=== PATIENT | male | born 1945 | race Caucasian/White ===

== ENCOUNTER 2019-02-13 18:34 | Emergency (ER) | payer MEDICARE, BC, SELFPAY ==
--- NOTE | 2019-02-13 18:43 | XR_ITS ---
WS: [id number] CHEST XRAY TECHNIQUE: Portable chest. CLINICAL INFORMATION: cp COMPARISON: None. FINDINGS: Heart: Normal cardiac silhouette. Lungs: Lungs are clear. No consolidation or pleural effusion. Bones: Normal visualized bony structures. XR/XR chest 1V portable [id number] IMPRESSION: Normal chest
[2019-02-13 19:03] VITALS: BP 130/82; PULSE 50; RESP 16; TEMP 36.6; O2SAT 95; BMI 24.3
[2019-02-13 19:26] LABS: Basophils % 0.4 %; Eosinophils # 0.2 10^3/uL (0.0-0.8); Eosinophils % 2.2 %; Hematocrit 45.1 % (42.0-52.0); Hemoglobin 15.3 g/dL (11.7-16.6); Lymphocytes # 1.6 10^3/uL (0.8-4.8); Lymphocytes % 22.9 %; Mean Corpuscular HGB Conc 33.9 g/dL (30.0-36.0); Mean Corpuscular Hemoglobin 29.5 pg (28.0-34.0); Mean Corpuscular Volume 86.9 fL (80-94); Monocytes # 0.5 10^3/uL (0.2-0.9); Monocytes % 6.6 %; Neutrophils # 4.8 10^3/uL (1.8-7.7); Neutrophils % 67.8 %; Nucleated Red Blood Cells % 0 %; Platelet Count 159 10^3/cmm (130-400); Red Blood Count 5.19 10^6/uL (4.1-5.3); Red Cell Distribution Width 12.4 % (12.1-15.1); White Blood Count 7.1 10^3/uL (4.0-10.0)
[2019-02-13 19:54] LABS: Alanine Aminotransferase 17 U/L (0-41); Albumin Level 4.7 g/dL (3.5-5.2); Alkaline Phosphatase 82 IU/L (40-130); Anion Gap 14.7 (5-19); Aspartate Amino Transferase 27 U/L (0-40); Blood Urea Nitrogen 17 mg/dL (8-23); Calcium 9.9 mg/Dl (8.8-10.2); Carbon Dioxide 26 mmol/L (22-29); Chloride 102 mmol/L (98-107); Globulin 3.1 g/dL (1.3-4.6); Glucose 98 mg/dL (74-106); Potassium 4.7 mmol/L (3.5-5.1); Sodium 138 mmol/L (136-145); Total Bilirubin 0.4 mg/dL (0.15-1.2); Total Protein 7.8 g/dL (6.6-8.7)
[2019-02-13 19:55] LABS: Troponin(5th) Baseline 8 ng/mL (0-15)
--- NOTE | 2019-02-13 20:43 | ECG_ITS ---
Measurements Intervals [place] Rate: 50 P: 74 RI: 151 QRS: 67 QRSD: 98 T: 69 QT: 434 QTc: 399 SINUS BRADYCARDIA No previous ECG available for comparison Electronically Signed On 02-14-2019 14:43:11 [employer] by Sorin Cardenas M.D. [id number]
--- NOTE | 2019-02-13 22:54 | ED_ITS ---
Entered by Clare Nicole, acting as scribe for Cruz Frederick MD Feb 13, 2019 18:34 HPI - Chest Pain General: Chief Complaint: Chest Pain Stated Complaint: CP Time Seen by Provider: 02/13/19 22:53 Source: patient and EMS Mode of arrival: EMS Limitations: no limitations History of Present Illness: HPI narrative: 73 y/o male presents to the ED with complaint of chest pain. Pt states he was seen at [facility] ER on February 05, 2019. There were no acute findings and he was advised to follow up with his regular doctor. His pain tends to occur at rest. He has been on protonix for about a week. He has a known hiatal hernia, at this time. MD complaint: chest pain and other (epigastric) Onset (ago): hour(s) Timing of current episode: episodic Prior episodes: Yes Onset: during rest Pain location: epigastric Severity: mild Associated symptoms: Deny dyspnea, fever(s), nausea or vomiting Review of Systems Const: Denies: fever or chills Eyes: Denies: change in vision ENMT: Denies: throat pain or mouth pain Card: Reports: chest pain Resp: Denies: shortness of breath GI: Denies: nausea, vomiting or diarrhea Musc: Denies: back pain or joint pain Skin/Breast: Denies: rash Neuro: Denies: headache or behavioral changes Psych: Denies: depression Endo: Denies: excessive urination Yang/Lymph: Denies: easy bruising All/Imm: Denies: hives PFSH ED PFSH: Statuses (acute, chronic, etc) shown below reflect problem list status as previously entered and may not be historically accurate Social History Smoking and tobacco status: never smoked Physical Exam Const: COMMON NORMALS: no apparent distress, oriented x3 and healthy appearing HENMT: COMMON NORMALS: normocephalic and external nose normal HEAD & SCALP: normocephalic NOSE: external nose normal Eye: COMMON NORMALS: PERRL PUPIL: Yes PERRL Neck/C-Spine: COMMON NORMALS: full ROM and no lymphadenopathy Chest: COMMONS NORMALS: inspection of chest normal Resp: COMMON NORMALS: normal respiratory effort, no use of accessory muscles and clear to auscultation bilaterally AUSCULTATION: clear to auscultation bilaterally Cardio: COMMON NORMALS: regular rate and regular rhythm RATE: regular rate RHYTHM: regular rhythm GI: COMMON NORMALS: normal to inspection, nondistended, normoactive bowel sounds, soft to palpation, non-tender and no masses PALPATION: Yes soft Back/Pelvis: THORACIC SPINE/UPPER BACK: Yes normal to inspection Extremity: COMMON NORMALS: normal to inspection, full ROM and normal capillary refill Neuro: COMMON NORMALS: oriented x3 Psych: COMMON NORMALS: mental status grossly normal and cooperative Skin: COMMON NORMALS: no rashes or lesions noted GENERAL SKIN EXAM: no rashes or lesions noted Course Vital Signs: Vital signs: Vital Signs Temperature 98.4 F 02/13/19 23:18 Pulse Rate 51 L 02/13/19 23:18 Respiratory Rate 16 02/13/19 23:18 Blood Pressure 138/83 02/13/19 23:18 Pulse Oximetry 97 02/13/19 23:18 MDM - Chest Pain MDM Narrative: Medical decision making narrative: Patient presents with a syncopal episode likely from dehydration. Patient is well-appearing here. I offered him admission but he states he feels improved and would like to go home. Patient head CT is normal. He is stable for discharge and return if worsening. Lab Data: Labs: Lab Results 02/13/19 02/13/19 02/13/19 Range/Units 19:15 19:15 19:15 WBC 7.1 (4.0-10.0) 10^3/ uL RBC 5.19 (4.1-5.3) 10^6/u L Hgb 15.3 (11.7-16.6) g/dL Hct 45.1 (42.0-52.0) % MCV 86.9 (80-94) fL MCH 29.5 (28.0-34.0) pg MCHC 33.9 (30.0-36.0) g/dL RDW 12.4 (12.1-15.1) % Plt Count 159 (130-400) 10^3/c mm MPV 11.0 H (7.4-10.4) fL Neut % (Auto) 67.8 % Lymph % (Auto) 22.9 % [place] % (Auto) 6.6 % Eos % (Auto) 2.2 % Baso % (Auto) 0.4 % Neut # (Auto) 4.8 (1.8-7.7) 10^3/u L Lymph # (Auto) 1.6 (0.8-4.8) 10^3/u L [place] # (Auto) 0.5 (0.2-0.9) 10^3/u L Eos # (Auto) 0.2 (0.0-0.8) 10^3/u L Baso # (Auto) 0.0 (0.0-0.1) 10^3/u L Nucleated RBC % (a uto) 0 % Nucleated RBCs # 0.0 /100WBC Sodium 138 (136-145) mmol/L Potassium 4.7 (3.5-5.1) mmol/L Chloride 102 (98-107) mmol/L Carbon Dioxide 26 (22-29) mmol/L Anion Gap 14.7 (5-19) BUN 17 (8-23) mg/dL Creatinine 1.1 (0.7-1.2) mg/dL Glucose 98 (74-106) mg/dL Calcium 9.9 (8.8-10.2) mg/Dl Total Bilirubin 0.4 (0.15-1.2) mg/dL AST 27 (0-40) U/L ALT 17 (0-41) U/L Alkaline Phosphata se 82 (40-130) IU/L Troponin T Baselin e 8 (0-15) ng/mL Troponin T 120 Min [place] (0-15) ng/mL Delta Troponin T (0-10) ABS# Total Protein 7.8 (6.6-8.7) g/dL Albumin 4.7 (3.5-5.2) g/dL Globulin 3.1 (1.3-4.6) g/dL 02/13/19 Range/Units 21:12 WBC (4.0-10.0) 10^3/ uL RBC (4.1-5.3) 10^6/u L Hgb (11.7-16.6) g/dL Hct (42.0-52.0) % MCV (80-94) fL MCH (28.0-34.0) pg MCHC (30.0-36.0) g/dL RDW (12.1-15.1) % Plt Count (130-400) 10^3/c mm MPV (7.4-10.4) fL Neut % (Auto) % Lymph % (Auto) % [place] % (Auto) % Eos % (Auto) % Baso % (Auto) % Neut # (Auto) (1.8-7.7) 10^3/u L Lymph # (Auto) (0.8-4.8) 10^3/u L [place] # (Auto) (0.2-0.9) 10^3/u L Eos # (Auto) (0.0-0.8) 10^3/u L Baso # (Auto) (0.0-0.1) 10^3/u L Nucleated RBC % (a uto) % Nucleated RBCs # /100WBC Sodium (136-145) mmol/L Potassium (3.5-5.1) mmol/L Chloride (98-107) mmol/L Carbon Dioxide (22-29) mmol/L Anion Gap (5-19) BUN (8-23) mg/dL Creatinine (0.7-1.2) mg/dL Glucose (74-106) mg/dL Calcium (8.8-10.2) mg/Dl Total Bilirubin (0.15-1.2) mg/dL AST (0-40) U/L ALT (0-41) U/L Alkaline Phosphata se (40-130) IU/L Troponin T Baselin e (0-15) ng/mL Troponin T 120 [address] [place] 8.90 (0-15) ng/mL Delta Troponin T 0.90 (0-10) ABS# Total Protein (6.6-8.7) g/dL Albumin (3.5-5.2) g/dL Globulin (1.3-4.6) g/dL Imaging Data^: CXR: Attestation: I personally reviewed and interpreted this imaging study as follows: My impression: nad CT Head: Radiologist's impression: nad EKG Data^: EKG 1: Attestation: I personally reviewed and interpreted this EKG as follows: EKG interpretation date: 02/13/19 EKG interpretation time: 18:44 Interpretation: sinus jared hr [address] or t wave abnormalities qrs 97 qtc 411 Discharge Plan Discharge Patient Disposition: Home, Self-Care Clinical Impression: Chest pain Qualifiers: Chest pain type: unspecified Qualified Code(s): R07.9 - Chest pain, unspecified Condition: Stable Discharge Orders: Discharge Order (Routine); Ordered 02/13/19 Ordered By: Cruz Frederick Referrals: Sorin Cardenas MD [Physician] - 4-7 days Discharge Diet: Advance as tolerated Discharge Activity: Resume usual activity Patient Instructions: Chest Pain (ED) Discharge Date/Time: 02/13/19 23:18 Coding Level of Care Code ED Public Administration Teacher for Chg Fwd Exam Problem Focused The documentation recorded by the Corey pedersen Ashley, accurately reflects the service I personally performed and the decisions made by Otoniel garcia Korby, MD Feb 13, 2019 18:34
[2019-02-13 23:18] VITALS: BP 138/83; PULSE 51; RESP 16; TEMP 36.9; O2SAT 97
--- NOTE | 2019-02-14 10:07 | DCPLANNER ---
technical manager chemical plant had message to schedule a follow up appointment for patient with [facility]. technical manager chemical plant called [facility], spoke with Abby, a follow up appointment was scheduled for Sunday, March 24, 2019 at 1:[address] Cardenas. Clinic will call patient with appointment information.
--- NOTE | 2019-04-08 14:29 | DCPLANNER ---
Patient did attend the appointment scheduled for 03.24.19 with [facility].
== END 2019-02-13 23:18 | disposition home or self-care (01) ==
PROVIDERS: Emergency Provider Emergency Medicine
DX: R07.9 Chest pain, unspecified (principal)
CPT/HCPCS: 36415; 71045; 80053; 84484; 85025; 93005; 99281

== ENCOUNTER 2019-04-22 06:33 | Outpatient (CLI) | payer MEDICARE, BC, SELFPAY ==
--- NOTE | 2019-04-22 07:16 | ECG_ITS ---
NAME OF STUDY: EXERCISE SESTAMIBI STRESS TEST INDICATION: Chest Pain, EXERCISE TREADMILL STRESS ORDERING PHYSICIAN: Theresa CLINICAL INFORMATION: Chest pain INTERPRETATION: 1. The patient exercised for 4 minutes and 16 seconds on a Eladio protocol. He reached a maximum heart rate of 141 beats per minute, which is 95 % of his maximum predicted heart rate. The test was stopped due to fatigue. 2. The baseline electrocardiogram reveals sinus rhythm with significant baseline artifact making interpretation of the EKG nearly impossible. 3. With exercise, there were no obvious ST segment changes to suggest ischemia. There was such baseline artifact the treadmill portion is nondiagnostic. 4. The resting blood pressure was 145/90. The maximum blood pressure was 213/69. 5. At maximum exercise, the patient achieved 7 METs with a rate pressure product of 273. 6. The patient experienced no chest pain during the examination. Occasional uniform PVCs developed during exercise CONCLUSION: 1. Probably normal exercise treadmill test. 2. Below average exercise capacity for age. 3. Hypertensive blood pressure response to exercise. 4. Nuclear imaging to follow Electronically Signed On 04-22-2019 10:40:47 CDT by Sorin Cardenas M.D. [id number]
--- NOTE | 2019-04-22 07:16 | NMCV_ITS ---
NM kaiden perf SPECT r/s* [id number] Maciel Wilson Age: 74 Gender: M : 1945 Exam Date: 04/22/2019 08:22 Ordering Phys: Sorin Cardenas MD ([email or web address]) Technologist: HOSEA Rosario Exam Location: [facility] Indications: Chest pain STRESS TEST Please see separate stress test report in [facility] for full findings IMAGE PROTOCOL Rest/Stress 1 Exercise Day Radiopharmaceutical Dose (mCi) Administration Site Administered by Rest: Tc-99m 10.7 IV HOSEA Rosario Sestamibi Stress:Tc-99m 32.6 IV HOSEA Rosario Sestamibi Rest: 22-Apr-2019 60 Discovery 630 Stress: 22-Apr-2019 15 Discovery 630 Radiopharmaceutical was injected at 86% maximum heart rate. Images obtained in supine and prone position. SPECT RESULTS Technical Quality: Good Raw Data Analysis: Normal Image Corrections: No attenuation or motion correction applied Summed Stress Score: 3 Summed Rest Score: 0 Summed Difference Score: 3 PERFUSION FINDINGS Small size perfusion abnormality of mild severity of apical anterior and inferior wall on rest images with improved tracer uptake on prone stress images. Small sized perfusion abnormality of mild severity of mid septal wall on stress images with improved tracer uptake on prone stress images. These findings are suggestive of attenuation artifact. FUNCTIONAL RESULTS (calculated via Gated SPECT) Stress Image LV EF (%): 52 Stress EDV (mL):88 TID: 0.93 Stress ESV (mL):42 FUNCTIONAL FINDINGS: The left ventricle is normal in size. Transient Ischemia Dilatation of 0.93. There is normal left ventricular systolic function. The left ventricular ejection fraction is low normal with a value of 52%. There is normal left ventricular wall thickening. Normal end-diastolic and end-systolic volumes. IMPRESSIONS 1. Myocardial perfusion imaging is normal. 2. Overall left ventricular systolic function is low normal without regional wall motion abnormalities. 3. This study suggests a low likelihood of angiographically significant coronary artery disease. 4. No prior similar studies to compare. Betarice Johnson MD (Electronically Signed) Final Date: 23 April 2019 18:37 S
[2019-04-22 07:17] VITALS: BMI 25.2
[2019-04-22 09:34] VITALS: BP 196/98; PULSE 67
== END 2019-04-22 06:34 | disposition home or self-care (01) ==
LOC: RAD 06:37
PROVIDERS: PCP Internal Medicine; Visit Provider Internal Medicine Cardiovascular Disease
DX: R07.9 Chest pain, unspecified (principal)
CPT/HCPCS: 78452; 93017; A9500